=== PATIENT | female | born 1990 | race Asian ===

== ENCOUNTER → 2018-01-16 | Outpatient (CLI) | payer OTHER ==
[~2018-01-16] MED LIST: DEXT30TA7 PO; GADAVIST IV PRN
--- NOTE | 2018-01-16 20:12 | DIAGNOSTIC IMAGING REPORT ---
BRAIN COMBO FOR PITUITARY CLINICAL HISTORY: Prolactin anemia. Abnormal thyroid function tests. TECHNIQUE: Multi axial MRI acquisition. Dynamic evaluation of the pituitary. COMPARISON STUDY: None FINDINGS: Diffusion-weighted images are negative for an acute ischemic insult. Signal characteristics of the cerebellar as well as cerebral hemispheres are unremarkable. Ventricular system is midline. Internal auditory canals are symmetric. Sella and parasellar region is unremarkable. Dynamic evaluation of the pituitary shows no evidence for an negative enhancing lesion. IMPRESSION: Normal study The above report was generated using voice recognition software. It may contain grammatical, syntax or spelling errors. Electronically signed by: Kaiser Ruiz M.D. 01/16/2018 8:10 PM Dictated Date/Time: 01/16/2018 8:06 PM
== END ==
LOC: C.MRI 18:21
PROVIDERS: ATTEND Internal Medicine Endocrinology, Diabetes & Metabolism
DX: R94.6 Abnormal results of thyroid function studies (principal); E01.0 Iodine-deficiency related diffuse (endemic) goiter; E06.9 Thyroiditis, unspecified